=== PATIENT | male | born 1965 | race Caucasian/White ===

== ENCOUNTER 2020-09-17 15:54 | Emergency (ER) | payer MEDICAID, OTHER ==
[~2020-09-17] VITALS: Ht 177.8 cm; Wt 155.6 kg
--- NOTE | 2020-09-17 15:59 | PHYS DOC ---
Past History Past Medical History: CHF, COPD, Diabetes, High Cholesterol, Hypertension Adult General Chief Complaint Chief Complaint: SHORTNESS OF BREATH HPI HPI Patient is a 54-year-old male presenting via EMS for shortness of breath. Patient reports he has felt this coming on for, "last week or 2". Rest makes better, physical exertion and laying flat make worse. Denies any significant pain, chest pressure, or ripping or tearing sensation in chest. States that he has had approximately 15 pound weight gain in last x1 month and continues to smoke ~0.5-1 pack per day of cigarettes. He is a poor historian. Admits history of poorly controlled diabetes and had a prolonged hospitalization at [facility] 06/2020 for right lower extremity foot wound requiring PICC line placement and IV antibiotics. States he lives at home by himself, has had home health coming to visit him daily but has not mentioned anything about his worsened shortness of breath with physical exertion etc. Reports today without any trauma or known inciting event, patient started feeling more dyspneic on exertion prompting him to call EMS. On arrival, patient found to be hypoxic 88% on room air, tachypneic, and hypertensive. States he was requesting to go to [facility] facility for evaluation but was brought here. He is requesting transfer to [facility] on arrival Review of Systems Review of Systems Fourteen body systems of review of systems have been reviewed. See HPI for pertinent positives and negative responses, other flores all other systems are negative, non-pertinent or non-contributory Physical Exam Physical Exam Constitutional: Well developed, well nourished, no acute distress, non-toxic appearance. HENT: Normocephalic, atraumatic, bilateral external ears normal, oropharynx moist, no oral exudates, nose normal. Eyes: PERRLA, EOMI, conjunctiva normal, no discharge. Neck: Normal range of motion, no tenderness, supple, no stridor. Cardiovascular: Heart rate regular, sinus rhythm, no murmurs rubs or gallops Lungs & Thorax: Bilateral breath sounds clear to auscultation Abdomen: Bowel sounds normal, soft, no tenderness, no masses, no pulsatile masses. Nonsurgical abdomen, no peritoneal signs Skin: Warm, dry, no erythema, no rash. Back: No tenderness, no CVA tenderness. Extremities: No tenderness, no cyanosis, no clubbing, ROM intact, no edema. Neurologic: Alert and oriented X 3, grossly normal motor & sensory function, no focal deficits noted. Psychologic: Affect normal, judgement normal, mood normal. Current Patient Data Vital Signs Vital Signs Date Time Temp Pulse Resp B/P (MAP) Pulse Ox O2 Delivery O2 Flow Rate FiO2 09/17/20 16:00 98.0 99 18 151/97 (115) 93 Room Air Vital Signs Date Time Temp Pulse Resp B/P (MAP) Pulse Ox O2 Delivery O2 Flow Rate FiO2 09/17/20 17:09 89 189/104 09/17/20 16:47 98.0 18 97 Room Air Lab Results Laboratory Tests Test 09/17/20 16:08 09/17/20 16:50 09/17/20 16:58 White Blood Count 6.7 x10^3/uL Red Blood Count 3.99 x10^6/uL Hemoglobin 9.8 g/dL Hematocrit 30.2 % Mean Corpuscular Volume 76 fL Mean Corpuscular Hemoglobin 25 pg Mean Corpuscular Hemoglobin Concent 32 g/dL Red Cell Distribution Width 17.4 % Platelet Count 280 x10^3/uL Neutrophils (%) (Auto) 77 % Lymphocytes (%) (Auto) 9 % Monocytes (%) (Auto) 7 % Eosinophils (%) (Auto) 7 % Basophils (%) (Auto) 1 % Neutrophils # (Auto) 5.1 x10^3uL Lymphocytes # (Auto) 0.6 x10^3/uL Monocytes # (Auto) 0.5 x10^3/uL Eosinophils # (Auto) 0.4 x10^3/uL Basophils # (Auto) 0.0 x10^3/uL Sodium Level 139 mmol/L Potassium Level 2.7 mmol/L Chloride Level 101 mmol/L Carbon Dioxide Level 31 mmol/L Anion Gap 7 Blood Urea Nitrogen 34 mg/dL Creatinine 2.4 mg/dL Estimated GFR (Cockcroft-Gault) 28.5 BUN/Creatinine Ratio 14 Glucose Level 268 mg/dL Calcium Level 8.4 mg/dL Total Bilirubin 0.3 mg/dL Aspartate Amino Transf (AST/SGOT) 30 U/L Alanine Aminotransferase (ALT/SGPT) 43 U/L Alkaline Phosphatase 320 U/L Troponin I Quantitative 0.036 ng/mL ED-Lqk-R-Type Natriuretic Peptide 4840 pg/mL Total Protein 7.0 g/dL Albumin 2.0 g/dL Albumin/Globulin Ratio 0.4 Magnesium Level 1.7 mg/dL Urine Collection Type Unknown Urine Color Yellow Urine Clarity Clear Urine pH 7.0 Urine Specific [place] 1.015 Urine Protein >100 mg/dl Urine Glucose (UA) 250 mg/dL Urine Ketones (Stick) Neg mg/dL Urine Blood Large Urine Nitrite Neg Urine Bilirubin Neg Urine Urobilinogen Dipstick 0.2 mg/dL Urine Leukocyte Esterase Neg Urine RBC >40 /HPF Urine WBC 0 /HPF Urine Squamous Epithelial Cells Few /LPF Urine Bacteria 0 /HPF Urine Mucus Slight /LPF Current Medications Medications (Trade) Dose Ordered Sig/Lisa Route PRN Reason Start Time Stop Time Status Last Admin Dose Admin Aspirin (Aspirin Chewable) 162 mg 1X ONCE PO 09/17/20 16:15 09/17/20 16:16 DC 09/17/20 16:14 Nitroglycerin (Nitrostat) 0.4 mg PRN Q5MIN PRN SL CHEST PAIN 09/17/20 16:00 09/17/20 17:09 Magnesium Sulfate 100 ml @ 100 mls/hr 1X ONCE IV 09/17/20 17:15 09/17/20 18:14 DC 09/17/20 17:29 Potassium Chloride (Klor-Con) 40 meq 1X ONCE PO 09/17/20 17:15 09/17/20 17:19 DC 09/17/20 17:28 Furosemide (Lasix) 40 mg 1X ONCE IVP 09/17/20 18:00 09/17/20 18:01 DC 09/17/20 18:08 EKG EKG EKG ordered and interpreted by myself at 1605 hrs. as sinus rhythm at 99 bpm, QTC 496 otherwise unremarkable intervals, left axis deviation, no acute ischemic findings, no STEMI Radiology/Procedures Radiology/Procedures XR CHEST 1V INDICATION: SHORT OF BREATH / Spl. Instructions: / History: . COMPARISON STUDY: None. FINDINGS: Lungs: Normal lung volume. Bilateral perihilar opacities. Indistinct central vasculature. Pleura: No pleural effusion or pneumothorax. Heart and Mediastinum: The cardiomediastinal silhouette is normal. The great vessels of the thorax are normal. IMPRESSION: Bilateral perihilar opacities, which may represent edema or infection. Electronically signed by: Alonso Major MD (09/17/2020 4:19 PM) [facility] Heart Score C/O Chest Pain: No HEART Score for Chest Pain: HEART Score for Chest Pain Response (Comments) Value History Moderately Suspicious 1 ECG Nonspecific Repolarizatio 1 Age >45 - < 65 1 Risk Factors >3 Risk Factors or Hx CAD 2 Troponin < Normal Limit 0 Total 5 Risk Factors: Risk Factors: DM, Current or recent (<one month) smoker, HTN, HLP, family history of CAD, obesity. Risk Scores: Risk Factors: DM, Current or recent (<one month) smoker, HTN, HLP, family history of CAD, obesity. Course & Med Decision Making Course & Med Decision Making Patient tachypneic and hypertensive otherwise hemodynamically stable on arrival. Maintained oxygen saturations greater than 90% on room air. HPI and physical exam concerning for symptomatic fluid overload status in high risk individual with several serious comorbidities 162 mg aspirin, x2 sublingual IV nitro and later 1 g magnesium, 40meq potassium and 40 mg Lasix administered after ER work-up resulted. Patient still a poor historian, little is known regarding his cardiovascular history, continues to express desire to be transferred to [facility] where he has all of his outpatient care and specialist such as cardiology present I contacted [facility] and discussed need for transfer, patient accepted under the care of Dr. Mack at [facility] facility at the [place] I updated patient on proposed plan of care that included hospital transfer for continued inpatient medical management and he was amenable. All questions and concerns addressed prior to ER transfer Critical Care Time This patient required critical care. Due to the fact that the patient required a significant amount of one on one physician - patient contact time, ordering and review of studies, arranging urgent treatment with development of a management plan, evaluation of patients response to treatment with frequent reassessments, and discussions with other providers this patient required 50 minutes of critical care time. Critical care time was indicated due to the inherent instability and/or potential for instability in this patient. The critical care time that is allocated to this patient is above and beyond any time spent on any other billable procedures performed on this patient. Dragon Disclaimer Dragon Disclaimer This electronic medical record was generated, in whole or in part, using a voice recognition dictation system. Departure Departure: Impression: Primary Impression: Acute exacerbation of CHF (congestive heart failure) Additional Impressions: Elevated serum creatinine Hypokalemia Hypomagnesemia Disposition: 02 ([facility]) Admitting Physician: Other Condition: STABLE Referrals: PCP,NO (PCP) Problem Qualifiers KATHI DOSHI DO Sep 17, 2020 15:59
--- NOTE | 2020-09-17 16:04 | EKG ---
[address] [address] Test Date: 2020-09-17 Test Time: 15:59:40 Pat Name: NANDA SILVER Department: Room: Gender: M [employer] Director: DARRIUS : 1965 Requested By: KATHI DOSHI Order Number: [id number] Reading MD: Measurements Intervals [place] Rate: 99 P: 45 SD: 186 QRS: -25 QRSD: 94 T: 44 QT: 382 QTc: 496 Interpretive Statements SINUS RHYTHM LEFTWARD AXIS PROLONGED QT NO SPECIFIC ECG ABNORMALITIES RI6.02 No previous ECG available for comparison
[2020-09-17] MEDS: NITROGLYCERIN SUBLINGUAL 0.4 MG BOTTLE OF 25. SL PRN ×2 (16:15→17:09)
[2020-09-17] MEDS ORDERED: ASPIRIN CHEWABLE 81 MG TABLET. PO ONE (16:15)
--- NOTE | 2020-09-17 16:21 | RAD ---
XR CHEST 1V INDICATION: SHORT OF BREATH / Spl. Instructions: / History: . COMPARISON STUDY: None. FINDINGS: Lungs: Normal lung volume. Bilateral perihilar opacities. Indistinct central vasculature. Pleura: No pleural effusion or pneumothorax. Heart and Mediastinum: The cardiomediastinal silhouette is normal. The great vessels of the thorax ar e normal. IMPRESSION: Bilateral perihilar opacities, which may represent edema or infection. Electronically signed by: Alonso Major MD (09/17/2020 4:19 PM) [facility]
[2020-09-17 16:25] LABS: BASO % 1 % (0-3); EOS # 0.4 x10^3/uL (0.0-0.7); EOS % 7 % (0-3); HEMATOCRIT 30.2 % (39.0-53.0); HEMOGLOBIN 9.8 g/dL (13.0-17.5); LYMPH # 0.6 x10^3/uL (1.0-4.8); LYMPH % 9 % (24-48); MEAN CORPUSCULAR HEMOGLOBIN 25 pg (25-35); MEAN CORPUSCULAR HGB CONC 32 g/dL (31-37); MEAN CORPUSCULAR VOLUME 76 fL (79-100); MONO # 0.5 x10^3/uL (0.0-1.1); MONO % 7 % (0-9); NEUT # 5.1 x10^3uL (1.8-7.7); NEUT % 77 % (31-73); PLATELET COUNT 280 x10^3/uL (140-400); RED BLOOD COUNT 3.99 x10^6/uL (4.30-5.70); RED CELL DISTRIBUTION WIDTH 17.4 % (11.5-14.5); WHITE BLOOD COUNT 6.7 x10^3/uL (4.0-11.0)
[2020-09-17 16:46] LABS: ALBUMIN/GLOBULIN RATIO 0.4 (1.0-1.7); CALCIUM 8.4 mg/dL (8.5-10.1); CREATININE 2.4 mg/dL (0.7-1.3); GFR 28.5; TOTAL BILIRUBIN 0.3 mg/dL (0.2-1.0)
[2020-09-17 16:48] LABS: POTASSIUM 2.7 mmol/L (3.5-5.1)
[2020-09-17] MEDS ORDERED: MAGNESIUM SULFATE 1GM 100 ML IV ONE (17:15)
[2020-09-17] MEDS ORDERED: POTASSIUM CHLORIDE 20 MEQ TABLET.ER. PO ONE (17:15)
[2020-09-17 17:31] LABS: BILIRUBIN,URINE NEG (NEG); CLARITY,URINE CLEAR; COLOR,URINE YELLOW; GLUCOSE,URINE 250 mg/dL (NEG); NITRITE,URINE NEG (NEG); UROBILINOGEN,URINE 0.2 mg/dL (0.2 mg/dL)
[2020-09-17 17:39] LABS: BACTERIA,URINE 0 /HPF (0-FEW); RBC,URINE >40 /HPF (0-2); SQUAMOUS EPITHELIAL CELL,UR FEW /LPF; WBC,URINE 0 /HPF (0-4)
[2020-09-17] MEDS ORDERED: FUROSEMIDE 40 MG/4 ML VIAL IVP ONE (18:00)
[2020-09-17 19:30] VITALS: BP 188/92
== END 2020-09-17 19:53 | disposition short-term general hospital (02) ==
LOC: ER 15:54
DX: I11.0 Hypertensive heart disease with heart failure (principal); I50.9 Heart failure, unspecified; R79.89 Other specified abnormal findings of blood chemistry; E87.6 Hypokalemia; E83.42 Hypomagnesemia; J44.9 Chronic obstructive pulmonary disease, unspecified; E11.9 Type 2 diabetes mellitus without complications; E78.00 Pure hypercholesterolemia, unspecified
CPT/HCPCS: 36415; 71045; 80053; 81001; 83735; 83880; 84484; 85025; 93005; 96361; 96374; 99285; J1940; J3475

== ENCOUNTER 2021-01-28 12:09 | Emergency (ER) | payer OTHER ==
[~2021-01-28] VITALS: Ht 177.8 cm; Wt 144.0 kg
[2021-01-28 12:26] VITALS: BP 125/69
--- NOTE | 2021-01-28 13:58 | PHYS DOC ---
Past History Past Medical History: CHF, COPD, Diabetes, High Cholesterol, Hypertension (NADINE SHERIDAN APRN) Past Surgical History: Other Additional Past Surgical Histo: Toes (NADINE SHERIDAN APRN) Smoking: Cigarettes, Less than 1pk/day Alcohol Use: None Drug Use: None (NADINE SHERIDAN APRN) General Adult EDM: Chief Complaint: EARACHE/EAR PAIN HPI: HPI: Patient is a 55-year-old male that presents today with left ear pain. Patient states pain started on Wednesday and has gotten worse over the last 2 days. Patient denies fever or chills. He states the pain is ringing in nature and fullness as well. (NADINE SHERIDAN APRN) Review of Systems: Review of Systems: Constitutional: Denies fever or chills Eyes: Denies change in visual acuity HENT: ear pain left Respiratory: Denies cough or shortness of breath Cardiovascular: Denies chest pain or edema GI: Denies abdominal pain, nausea, vomiting, bloody stools or diarrhea : Denies dysuria Musculoskeletal: Denies back pain or joint pain Integument: Denies rash Neurologic: Denies headache, focal weakness or sensory changes Endocrine: Denies polyuria or polydipsia Lymphatic: Denies swollen glands Psychiatric: Denies depression or anxiety (NADINE SHERIDAN APRN) Allergies: Allergies: Allergies Coded Allergies Type Severity Reaction Last Updated Verified Penicillins Allergy Unknown 09/17/20 Yes (NADINE SHERIDAN APRN) Physical Exam: PE: Constitutional: Well developed, well nourished, no acute distress, non-toxic appearance. [] HENT: Normocephalic, atraumatic, bilateral external ears normal, Left TM bulging, no erythema noted, right TM normal in appearance, nares are reddened. Eyes: PERRLA, EOMI, conjunctiva normal, no discharge. [] Neck: Normal range of motion, no tenderness, supple, no stridor. [] Cardiovascular:Heart rate regular rhythm, no murmur [] Lungs & Thorax: Bilateral breath sounds clear to auscultation [] Abdomen: Bowel sounds normal, soft, no tenderness, no masses, no pulsatile masses. [] Skin: Warm, dry, no erythema, no rash. [] Back: No tenderness, no CVA tenderness. [] Extremities: No tenderness, no cyanosis, no clubbing, ROM intact, no edema. [] Neurologic: Alert and oriented X 3, normal motor function, normal sensory function, no focal deficits noted. [] Psychologic: Affect normal, judgement normal, mood normal. [] (NADINE SHERIDAN APRN) Current Patient Data: Vital Signs: Vital Signs Date Time Temp Pulse Resp B/P (MAP) Pulse Ox O2 Delivery O2 Flow Rate FiO2 01/28/21 12:26 97.9 86 18 125/69 (87) 97 (NADINE SHERIDAN APRN) EKG: EKG: [] (NADINE SHERIDAN APRN) Radiology/Procedures: Radiology/Procedures: [] (NADINE SHERIDAN APRN) Heart Score: C/O Chest Pain: N/A (NADINE SHERIDAN APRN) Course & Med Decision Making: Course & Med Decision Making Pertinent Labs and Imaging studies reviewed. (See chart for details) [I have reviewed this case with Dr. Carballo will order dexamethasone 10 mg orally x1 here. Will recommend patient take daily Zyrtec [id number] and restart his Flonase that patient already has at home. Patient to follow-up with his primary care physician this Wednesday for other medical reasons. ] (NADINE SHERIDAN APRN) Dragon Disclaimer: Dragon Disclaimer: This electronic medical record was generated, in whole or in part, using a voice recognition dictation system. (NADINE SHERIDAN APRN) Departure Departure: Impression: Primary Impression: Ear fullness Qualified Codes: H93.8X2 - Other specified disorders of left ear Disposition: HOME / SELF CARE / HOMELESS Condition: STABLE Referrals: KANDI SMART MD (PCP) Patient Instructions: Serous Otitis Media Additional Instructions: Start Zyrtec [id number] as labeled directed daily Restart Flonase 2 sprays to each nare twice daily Tylenol and/or ibuprofen as needed for pain Follow-up with primary care physician on Wednesday as already scheduled Attending Signature Attending Signature I have reviewed the PA/SUPPLY PERSON's note and plan of care. I was available for consultation as needed during the patient's visit in the emergency department. I agree with the clinical impression, plan, and disposition. (MARY CARBALLO DO) NADINE SHERIDAN APRN Jan 28, 2021 13:58 MARY CARBALLO DO Jan 29, 2021 00:44
[2021-01-28] MEDS ORDERED: DEXAMETHASONE SOD PHOS 10 MG/ML VIAL. PO ONE (14:00)
== END 2021-01-28 14:09 | disposition home or self-care (01) ==
LOC: ER 12:09
DX: H93.8X2 Other specified disorders of left ear (principal); H92.02 Otalgia, left ear; I11.0 Hypertensive heart disease with heart failure; I50.9 Heart failure, unspecified; J44.9 Chronic obstructive pulmonary disease, unspecified; E11.9 Type 2 diabetes mellitus without complications; E78.00 Pure hypercholesterolemia, unspecified; F17.210 Nicotine dependence, cigarettes, uncomplicated; Z88.0 Allergy status to penicillin
CPT/HCPCS: 99283; J1100